=== PATIENT | female | born 1935 | race Caucasian/White ===

== ENCOUNTER 2019-05-04 14:10 | Emergency (ER) | payer OTHER ==
[~2019-05-04] VITALS: Ht 157.5 cm; Wt 63.5 kg
[2019-05-04] MEDS ORDERED: NORVASC2.5 M1 (14:30)
[2019-05-04] MEDS ORDERED: OMEPRAZOLE-BIC1 EAC1 (14:30)
[2019-05-04] MEDS ORDERED: AZELAIC ACID (14:32)
[2019-05-04] MEDS ORDERED: [UNRECOGNIZED DRUG - OTHER] (14:32)
== END 2019-05-04 17:46 | disposition home or self-care (01) ==
LOC: ER 14:10
DX: S00.83XA Contusion of other part of head, initial encounter (principal); R55 Syncope and collapse; E86.0 Dehydration; W18.09XA Striking against other object with subsequent fall, initial encounter; Y93.01 Activity, walking, marching and hiking; Y92.098 Other place in other non-institutional residence as the place of occurrence of the external cause; Y99.8 Other external cause status